=== PATIENT | female | born 1970 | race African-American/Black ===

== ENCOUNTER 2021-03-10 15:13 | Emergency (ER) | payer MEDICAID ==
[~2021-03-10] VITALS: Ht 170.2 cm; Wt 68.0 kg
[2021-03-10] MEDS ORDERED: HALOPERIDOL LACTATE 5MG/ML VIAL IM STA (15:36)
[2021-03-10] MEDS ORDERED: LORAZEPAM 2MG/ML CPJ IM STA (15:36)
[2021-03-10 20:34] LABS: BASOPHILS % 0.7 % (0.0-2.0); EOSINOPHILS % 2.4 % (0.0-5.0); HEMATOCRIT. 36.2 % (36.0-48.0); HEMOGLOBIN. 11.6 g/dL (12.0-16.0); LYMPHOCYTES % 27.6 % (20.0-50.0); MEAN CORPUSCULAR VOLUME 81.4 fL (81.0-99.0); MEAN PLATELET VOLUME 7.8 fl (7.4-10.4); NEUTROPHILS % 57.3 % (40.0-76.0); PLATELET 273 x1000/uL (130-400); RED BLOOD CELL COUNT 4.44 mill/uL (4.2-5.4); RED CELL DISTRIBUTION WIDTH 12.8 % (11.6-14.6)
[2021-03-10 20:41] LABS: CHLORIDE 110 mEq/L (98-107)
[2021-03-10 20:46] LABS: ETHANOL BLOOD < 10 mg/dL
[2021-03-10] MEDS ORDERED: HALOPERIDOL LACTATE 5MG/ML VIAL IM ONE (22:00)
[2021-03-11 00:23] LABS: CLARITY URINE CLEAR (CLEAR); COLOR URINE YELLOW (YELLOW); KETONES URINE NEGATIVE (NEGATIVE); LEUKOCYTE ESTERASE URINE NEGATIVE (NEGATIVE); NITRITE URINE NEGATIVE (NEGATIVE); OCCULT BLOOD URINE NEGATIVE (NEGATIVE); PROTEIN URINE NEGATIVE (NEGATIVE); SPECIFIC GRAVITY URINE 1.019 (1.005-1.030); UROBILINOGEN URINE 0.2 E.U./dL (0.2-1.0)
[2021-03-11 00:34] LABS: *AMPHETAMINES SCREEN URINE NEGATIVE (NEGATIVE); *BARBITURATES SCREEN URINE NEGATIVE (NEGATIVE)
[2021-03-11 00:35] LABS: *BENZODIAZEPINES SCREEN URINE NEGATIVE (NEGATIVE); *COCAINE SCREEN URINE NEGATIVE (NEGATIVE); METHADONE URINE SCREEN NEGATIVE (NEGATIVE); OPIATES URINE SCREEN NEGATIVE (NEGATIVE)
[2021-03-11 00:36] LABS: CANNABINOID URINE SCREEN NEGATIVE (NEGATIVE); PHENCYCLIDINE URINE SCREEN NEGATIVE (NEGATIVE)
[2021-03-11 12:00] VITALS: BP 118/75
== END 2021-03-11 13:29 ==
LOC: ER 15:13
DX: F23 Brief psychotic disorder (principal); G91.9 Hydrocephalus, unspecified; R41.82 Altered mental status, unspecified; R62.50 Unspecified lack of expected normal physiological development in childhood
CPT/HCPCS: 36415; 70450; 80053; 80305; 80307; 80320; 80329; 81003; 85025; 96372; 99285; J1630; J2060; Z7610; G0480

== ENCOUNTER 2021-07-13 21:19 | Inpatient (IN) | payer MEDICAID ==
[~2021-07-13] VITALS: Ht 170.2 cm; Wt 85.3 kg
[2021-07-13] MEDS ORDERED: SODIUM CHLORIDE 0.9% 1,000 ML IV ONE (22:30)
[2021-07-13] MEDS ORDERED: MIDAZOLAM HCL 2 MG/2 ML VIAL IV ONE (22:30)
[2021-07-13 23:17] LABS: BASOPHILS % 0.5 % (0.0-2.0); EOSINOPHILS % 1.4 % (0.0-5.0); HEMATOCRIT. 36.6 % (36.0-48.0); HEMOGLOBIN. 12.1 g/dL (12.0-16.0); LYMPHOCYTES % 16.5 % (20.0-50.0); MEAN CORPUSCULAR HEMOGLOBIN 26.7 pg (28.0-32.0); MEAN CORPUSCULAR VOLUME 80.8 fL (81.0-99.0); MONOCYTES % 8.2 % (2.0-8.0); NEUTROPHILS % 73.4 % (40.0-76.0); PLATELET 276 x1000/uL (130-400); RED BLOOD CELL COUNT 4.53 mill/uL (4.2-5.4); RED CELL DISTRIBUTION WIDTH 13.2 % (11.6-14.6)
[2021-07-13 23:25] LABS: CHLORIDE 112 mEq/L (98-107)
[2021-07-14] MEDS: LORAZEPAM 2MG/ML CPJ IV PRN (07:52)
[2021-07-14 09:00] VITALS: BP 105/64
[2021-07-14] MEDS ORDERED: ONDANSETRON HCL 4MG/2ML INJ IV PRN (11:30)
[2021-07-14] MEDS ORDERED: LORAZEPAM 2MG/ML CPJ IV PRN (11:30)
[2021-07-14 16:00] VITALS: BP_SYST 118; BP_SYST 147; BP_DIAS 62; BP_DIAS 83
[2021-07-14] MEDS: SODIUM CHLORIDE 0.9% 1,000 ML IV SCH (16:38)
[2021-07-14] MEDS: PANTOPRAZOLE SODIUM 40 MG/VIAL IV SCH (16:39)
[2021-07-14] MEDS ORDERED: ACETAMINOPHEN 325MG TABLET PO PRN (18:00)
[2021-07-14] MEDS ORDERED: MIRT-118 MT (18:44)
[2021-07-14] MEDS ORDERED: QUET100T MT (18:44)
[2021-07-14] MEDS ORDERED: TOPUD MT (18:45)
[2021-07-14] MEDS ORDERED: MONT10TA21 PO (18:45)
[2021-07-14] MEDS: MIRTAZAPINE 15MG TABLET PO SCH (20:36)
[2021-07-14] MEDS: QUETIAPINE FUMARATE 50MG TABLET PO SCH (20:37)
[2021-07-14] MEDS: MONTELUKAST SODIUM 10MG TABLET PO SCH (20:37)
[2021-07-15] VITALS: BP 114/74
[2021-07-15] MEDS: SODIUM CHLORIDE 0.9% 1,000 ML IV SCH ×2 (00:15→13:53)
[2021-07-15 00:23] LABS: HEMATOCRIT 36.2 % (36.0-48.0); HEMOGLOBIN 11.6 g/dL (12.0-16.0)
[2021-07-15 04:00] VITALS: BP 111/65
[2021-07-15 08:00] VITALS: BP 103/58
[2021-07-15] MEDS: QUETIAPINE FUMARATE 50MG TABLET PO SCH ×2 (09:17→22:07)
[2021-07-15] MEDS: PANTOPRAZOLE SODIUM 40 MG/VIAL IV SCH (09:17)
[2021-07-15 10:22] LABS: BASOPHILS % 0.4 % (0.0-2.0); EOSINOPHILS % 1.8 % (0.0-5.0); HEMATOCRIT. 35.2 % (36.0-48.0); HEMOGLOBIN. 11.4 g/dL (12.0-16.0); LYMPHOCYTES % 15.1 % (20.0-50.0); MEAN CORPUSCULAR VOLUME 80.1 fL (81.0-99.0); MEAN PLATELET VOLUME 8.1 fl (7.4-10.4); MONOCYTES % 7.2 % (2.0-8.0); NEUTROPHILS % 75.5 % (40.0-76.0); PLATELET 278 x1000/uL (130-400); RED CELL DISTRIBUTION WIDTH 13.5 % (11.6-14.6)
[2021-07-15 10:39] LABS: CHLORIDE 114 mEq/L (98-107)
[2021-07-15 12:00] VITALS: BP 104/66
[2021-07-15 16:00] VITALS: BP 106/64
[2021-07-15 16:11] LABS: HEMATOCRIT 34.4 % (36.0-48.0); HEMOGLOBIN 11.3 g/dL (12.0-16.0)
[2021-07-15 20:00] VITALS: BP 104/55
[2021-07-15] MEDS: MONTELUKAST SODIUM 10MG TABLET PO SCH (22:07)
[2021-07-15] MEDS: MIRTAZAPINE 15MG TABLET PO SCH (22:07)
[2021-07-16] VITALS: BP 118/75
[2021-07-16] MEDS: LORAZEPAM 2MG/ML CPJ IV PRN ×2 (00:20→03:19)
[2021-07-16] MEDS: SODIUM CHLORIDE 0.9% 1,000 ML IV SCH (03:30)
[2021-07-16] MEDS ORDERED: OLANZAPINE 10 MG/VIAL IM NR (05:45)
[2021-07-16] MEDS ORDERED: PANTOPRAZOLE 40MG DR TABLET PO SCH (07:20)
[2021-07-16 08:00] VITALS: BP 139/76
[2021-07-16] MEDS: QUETIAPINE FUMARATE 50MG TABLET PO SCH (10:07)
[2021-07-16 12:00] VITALS: BP 134/78
== END 2021-07-16 13:20 | DRG 252 ==
LOC: ER 21:19 → MICUSO 07-14 02:13 → 6EST 07-14 08:57
PROVIDERS: ADMIT Internal Medicine; ATTEND Internal Medicine
DX: K94.09 Other complications of colostomy (principal); E44.1 Mild protein-calorie malnutrition; F20.9 Schizophrenia, unspecified; K94.01 Colostomy hemorrhage; K29.70 Gastritis, unspecified, without bleeding; K21.9 Gastro-esophageal reflux disease without esophagitis; J44.9 Chronic obstructive pulmonary disease, unspecified; Z88.1 Allergy status to other antibiotic agents; Y83.3 Surgical operation with formation of external stoma as the cause of abnormal reaction of the patient, or of later complication, without mention of misadventure at the time of the procedure; Y92.89 Other specified places as the place of occurrence of the external cause; F89 Unspecified disorder of psychological development; Z68.29 Body mass index [BMI] 29.0-29.9, adult
CPT/HCPCS: 36415; 80053; 85014; 85018; 85025; 99285; C9113; J2060; J2250; J3490; J7030